=== PATIENT | female | born 1995 | race Two or more races ===

== ENCOUNTER 2020-02-19 07:30 | Inpatient (IN) | payer OTHER ==
[~2020-02-19] VITALS: Ht 157.5 cm; Wt 80.7 kg
== END 2020-02-21 16:56 | disposition home or self-care (01) | DRG 807 ==
LOC: LDR 07:30 → OB/GYN 18:06
PROVIDERS: ADMIT Obstetrics & Gynecology; ATTEND Obstetrics & Gynecology
PROC: 4A1HXFZ Monitoring of Products of Conception, Cardiac Rhythm, External Approach (ICD-10-PCS; principal; 2020-02-19)
PROC: 10E0XZZ Delivery of Products of Conception, External Approach (ICD-10-PCS; 2020-02-19)
DX: O80 Encounter for full-term uncomplicated delivery (principal); Z37.0 Single live birth; Z3A.39 39 weeks gestation of pregnancy; Z20.828 Contact with and (suspected) exposure to other viral communicable diseases